=== PATIENT | male | born 1990 | race Caucasian/White ===

== ENCOUNTER 2024-06-09 11:39 | Emergency (ER) | payer OTHER ==
[~2024-06-09] VITALS: Ht 170.2 cm; Wt 59.0 kg
[2024-06-09 11:43] VITALS: TEMP 97.7
[2024-06-09] MEDS: proparacaine 0.5% ophthalmic drops 15ml RIGHTEYE ONE (13:10)
[2024-06-09] MEDS: gentamicin 0.3% ophthalmic drops 5ML RIGHTEYE ONE (13:25)
[2024-06-09 13:27] VITALS: BP 101/75; PULSE 66; RESP 16; O2SAT 99
== END 2024-06-09 13:40 | disposition home or self-care (01) ==
LOC: ER 11:40
DX: T15.11XA Foreign body in conjunctival sac, right eye, initial encounter (principal); W44.8XXA Other foreign body entering into or through a natural orifice, initial encounter; Y93.89 Activity, other specified; Y92.89 Other specified places as the place of occurrence of the external cause; Y99.8 Other external cause status
CPT/HCPCS: 65205; 99283; 99284

== ENCOUNTER 2025-06-01 05:01 | Emergency (ER) | payer OTHER ==
[~2025-06-01] VITALS: Ht 170.2 cm; Wt 56.8 kg
--- NOTE | 2025-06-01 05:30 | ELECTROCARDIOGRAPH REPORT ---
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
--- NOTE | 2025-06-01 06:16 | Physician Documentation ---
History of Present Illness General Chief Complaint: See Chief Complaint Stated Complaint: FLU LIKE SYMPTOMS Time Seen by MD: 06:05 Mode of Arrival: Ambulatory History of Present Illness Initial Comments 35-YEAR-OLD MALE PRESENTS TO THE EMERGENCY DEPARTMENT WITH MULTIPLE COMPLAINTS COMPLAINS OF WEIGHT LOSS CHILLS decreased energy decreased appetite over the last several months. Patient states he has been followed at the [facility] and they prescribed him omeprazole recently. Patient states he has difficulty eating and has mostly been drinking fluids but he has been losing weight. He denies any actual fevers he states that he has been dizzy and he occasionally has PVCs. The patient has no cardiac history patient has no known medical problems he is taking no medications he does smoke occasionally marijuana. Patient's symptoms are mild to moderate and persistent. Medication Reconciliation Allergies: Coded Allergies: No Known Allergies (Unverified , 06/09/24) Scheduled Atenolol (Atenolol), 1 TAB PO DAILY Scheduled PRN ONDANSETRON ODT 4mg tablet (Ondansetron Odt), 1 TABLET PO Q6H PRN for nausea/vomiting Past Medical History Past Medical History: No Pertinent History Past Surgical History: no surgical history Drug Use: none Lives In: Home Review of Systems All Other Systems at this time: Reviewed and Negative Physical Exam Physical Exam Vital Signs: Temperature: 98.0, Source: Oral, Heart Rate: 115, Respiratory Rate: 14, BP: 113/76, Pulse Oximetry: 99, Weight: 56.810 Physical Exam The note accurately reflects work and decisions made by me.Laina Tinoco MD 06/01/25 06:37VITALS: Reviewed and as above. GENERAL: Alert, no apparent distress. HEENT: Normocephalic, atraumatic, PERRL, EOMI, dry mucosa, no erythema RESPIRATORY: Lungs clear, normal breath sounds, no respiratory distress. CHEST: No accessory muscle use, no retractions CV: Regular rate, rhythm, no edema, no murmur, No: JVD GI: Soft, non-tender, bowels sounds present, no rebound, guarding, or rigidity BACK: No CVA tenderness, or swelling MUSCULOSKELETAL No deformities, no edema SKIN: Warm and dry, no rash NEURO: Oriented x4, No motor or sensory deficit PSYCH: Normal mood and affect, no agitation Progress Results/Orders Results/Orders Completed Orders - OHLFS,LAINA Acuna MD TSH (06/01/25 06:33) Vital Signs 06/01/25 06/01/25 06/01/25 06/01/25 05:03 05:37 06:49 06:54 Temp 98.0 98.3 Pulse 115 98 Resp 20 14 16 B/P (MAP) 113/76 114/86 (95) Pulse Ox 99 98 O2 Flow Rate 0 06/01/25 06/01/25 07:30 08:31 Pulse 87 102 99 93 Resp 16 B/P (MAP) 115/80 115/76 (89) 115/86 108/75 Pulse Ox 97 O2 Flow Rate 0 Laboratory Tests Test 06/01/25 07:14 White Blood Count 7.7 Red Blood Count 4.51 L Hemoglobin 13.4 L Hematocrit 38.0 L Mean Corpuscular Volume 84.3 Mean Corpuscular Hemoglobin 29.7 Mean Corpuscular Hemoglobin Concent 35.3 Red Cell Distribution Width 12.6 Platelet Count 225 Mean Platelet Volume 8.7 Neutrophils (%) (Auto) 80.6 H Lymphocytes (%) (Auto) 13.9 L Monocytes (%) (Auto) 4.8 Eosinophils (%) (Auto) 0.3 Basophils (%) (Auto) 0.4 Neutrophils # (Auto) 6.2 Lymphocytes # (Auto) 1.1 Monocytes # (Auto) 0.4 Eosinophils # (Auto) 0.0 Basophils # (Auto) 0.0 CBC Comment Sodium Level 133 L Potassium Level 4.3 Chloride Level 98 L Carbon Dioxide Level 26.4 Anion Gap 9 Blood Urea Nitrogen 22 H Creatinine 1.16 H Estimated GFR/1.73 m2 71 BUN/Creatinine Ratio 19.0 Glucose Level 106 H Calcium Level 9.1 Total Bilirubin 1.1 H Aspartate Amino Transf (AST/SGOT) 18 Alanine Aminotransferase (ALT/SGPT) 17 Alkaline Phosphatase 55 Total Protein 8.0 Albumin 4.8 Globulin 3.2 Albumin/Globulin Ratio 1.5 Thyroid Stimulating Hormone (TSH) 1.09 Chemistry Comments Medical Decision Making Findings The patient's 12 lead EKG was read as a normal sinus rhythm with a rate of 96 with normal axis interpretation normal EKG. The patient has had multiple vague symptoms over the last weeks to months the patient complains of weight loss fatigue decreased appetite. Patient was recently placed on omeprazole the latanya forrester has a benign exam his labs were unremarkable here in the emergency department the patient's TSH was checked and was normal patient has been advised to follow up as an outpatient. The patient's prior hospitalizations were reviewed. The patient's pulse oximetry was interpreted as normal and adequate. The patient was slightly clinically dehydrated he has significant anxiety he has agreed to take atenolol and see if that helps with the anxiety was offered Celexa he he wanted to try the atenolol. [facility] for significant worsening of his symptoms. Departure Disposition: HOME / SELF CARE / HOMELESS Impression: Primary Impression: Dehydration Additional Impression: Anxiety Discharge Instructions: Dehydration, Adult, [id number] Additional Instructions: Follow up with your healthcare providers soon as possible. Take atenolol 25 mg at night. Return for worsening of your symptoms. Continue to take your omeprazole. Referrals: NO PRIMARY CARE PROVIDER (PCP) Prescriptions ONDANSETRON ODT 4mg tablet (ONDANSETRON ODT) 4 Mg Tab.rapdis 1 TABLET PO Q6H PRN for nausea/vomiting, #21 TABLET Prov: LAINA TINOCO MD 06/01/25 Atenolol (Atenolol) 25 Mg Tablet 1 TAB PO DAILY for 30 Days, #30 TAB Prov: LAINA TINOCO MD 06/01/25 Signature Scribe Signature: no scribe Attestation: The note accurately reflects work and decisions made by me.Laina Tinoco MD 06/03/25 00:39 LAINA TINOCO MD Jun 01, 2025 06:16
[2025-06-01] MEDS ORDERED: ONDA-243 PO (06:35)
[2025-06-01] MEDS ORDERED: ATEN25TA PO (06:35)
[2025-06-01 06:49] VITALS: TEMP 98.3
[2025-06-01 07:28] LABS: MEAN PLATELET VOLUME 8.7 FL (7.4-10.4); RED CELL DISTRIBUTION WIDTH 12.6 % (11.5-14.5)
[2025-06-01 07:38] LABS: CREATININE 1.16 MG/DL (0.60-1.10); TOTAL CARBON DIOXIDE 26.4 MMOL/L (24-32); eCRCL 71 ML/MIN; eGFR 71 ML/MIN
[2025-06-01 08:31] VITALS: BP 115/76; PULSE 102; RESP 16; O2SAT 97
== END 2025-06-01 09:08 | disposition home or self-care (01) ==
LOC: ER 05:02
DX: E86.0 Dehydration (principal); F41.9 Anxiety disorder, unspecified
CPT/HCPCS: 36415; 80053; 84443; 85025; 93005; 99284

== ENCOUNTER 2025-06-23 18:07 | Emergency (ER) | payer OTHER ==
[~2025-06-23] VITALS: Ht 172.7 cm; Wt 57.7 kg
[~2025-06-23 18:07] MED LIST: ATEN25TA PO; ONDA-243 PO
[2025-06-23 18:13] VITALS: BP 139/87; PULSE 127; RESP 18; TEMP 98.4; O2SAT 99
--- NOTE | 2025-06-23 18:17 | ELECTROCARDIOGRAPH REPORT ---
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
[2025-06-23 18:29] LABS: MEAN PLATELET VOLUME 8.8 FL (7.4-10.4); RED CELL DISTRIBUTION WIDTH 12.9 % (11.5-14.5)
--- NOTE | 2025-06-23 18:38 | RADIOLOGY REPORT ---
CHEST RADIOGRAPH Indication: CP Technique: Single frontal view of the chest was obtained COMPARISON: None FINDINGS: Lines and Tubes: None Lungs: Clear Pleura: No effusion. No pneumothorax. Cardiomediastinal contours: Unremarkable Bones: Unremarkable IMPRESSION: No acute disease.
[2025-06-23 18:51] LABS: CREATININE 0.96 MG/DL (0.60-1.10); PRO BRAIN NATRIURETIC PEPTIDE < 30 PG/ML (0-125); TOTAL CARBON DIOXIDE 27.4 MMOL/L (24-32); eCRCL 87 ML/MIN; eGFR 89 ML/MIN
[2025-06-23] MEDS ORDERED: HYDR-3686 PO (19:19)
--- NOTE | 2025-06-23 19:19 | Physician Documentation ---
History of Present Illness ~ Chief Complaint: Palpitations Stated Complaint: CP Time Seen by MD: 19:13 HPI 35-year-old male with complaints of heart racing palpitations starting while watching a movie. Patient has no significant heart history this is the 3rd time in 2 months that he has been in for chest pain or racing heart rate. Patient does see his primary care at the [place] he is scheduled to have a 72 hour Holter monitor put on tomorrow for further evaluation and treatment. Patient is also being treated for gastric ulcers and gastritis. Patient denies any pain but has had costochondritis in the past. Patient states he was watching a movie and noticed his watch tell him that his heart rate was in the 150s and then in the 170s he was deep breathing did not feel anxious has stopped caffeine and eliminated nicotine at the previous visit but did start drinking caffeine again today. Patient had a little over half a energy drink today. Patient was given propranolol as needed for a racing heart rate but does not take it consistently. Medication Reconciliation Allergies: Coded Allergies: No Known Allergies (Unverified , 06/23/25) Scheduled Atenolol (Atenolol), 1 TAB PO DAILY Scheduled PRN ONDANSETRON ODT 4mg tablet (Ondansetron Odt), 1 TABLET PO Q6H PRN for nausea/vomiting Past Medical History Past Medical History: No Pertinent History Past Surgical History: no surgical history Drug Use: none Lives In: Home Review of Systems All Other Systems at this time: Reviewed and Negative Cardiovascular: Reports: see HPI Physical Exam Vital Signs: RN Vital Signs have been reviewed: Yes, Temperature: 98.4, Source: Temporal, Heart Rate: 127, Respiratory Rate: 18, BP: 139/87, Pulse Oximetry: 99, Weight: 57.730 Oxygen Flow Rate: 0 General Appearance: alert, WD/WN, no apparent distress Neck: normal inspection, full range of motion, supple Respiratory: lungs clear, normal breath sounds, no respiratory distress Chest: no accessory muscle use; No: retractions Cardiovascular: normal peripheral pulses, no edema, no JVD Neurologic: oriented x4, 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 nml as tested Psych: normal mood/affect, anxiety Skin: normal color, warm/dry; No: rash Progress Results/Orders Results/Orders Vital Signs 06/23/25 18:13 Temp 98.4 Pulse 127 Resp 18 B/P (MAP) 139/87 Pulse Ox 99 O2 Flow Rate 0 Laboratory Tests Test 06/23/25 18:13 White Blood Count 8.9 Red Blood Count 4.52 L Hemoglobin 13.3 L Hematocrit 39.2 L Mean Corpuscular Volume 86.6 Mean Corpuscular Hemoglobin 29.4 Mean Corpuscular Hemoglobin Concent 34.0 Red Cell Distribution Width 12.9 Platelet Count 269 Mean Platelet Volume 8.8 Neutrophils (%) (Auto) 52.9 Lymphocytes (%) (Auto) 36.8 Monocytes (%) (Auto) 7.6 Eosinophils (%) (Auto) 1.9 Basophils (%) (Auto) 0.8 Neutrophils # (Auto) 4.7 Lymphocytes # (Auto) 3.3 Monocytes # (Auto) 0.7 Eosinophils # (Auto) 0.2 Basophils # (Auto) 0.1 CBC Comment Sodium Level 141 Potassium Level 3.6 Chloride Level 103 Carbon Dioxide Level 27.4 Anion Gap 11 Blood Urea Nitrogen 17 Creatinine 0.96 Estimated GFR/1.73 m2 89 BUN/Creatinine Ratio 17.7 Glucose Level 100 Calcium Level 9.3 Troponin I High Sensitivity < 4 L Troponin I High Sens Percent Delta Troponin I Hi Sens Absolute Change Pro-B-Type Natriuretic Peptide < 30 Albumin 4.4 Chemistry Comments EKG/XRAY/CT/US/VASC/MRI EKG : Additional Comment Sinus tachycardia at 119 right axis deviation no acute ST-T abnormalities Chest X-Ray : Additional Comments CHEST RADIOGRAPH Indication: CP Technique: Single frontal view of the chest was obtained COMPARISON: None FINDINGS: Lines and Tubes: None Lungs: Clear Pleura: No effusion. No pneumothorax. Cardiomediastinal contours: Unremarkable Bones: Unremarkable IMPRESSION: No acute disease. Heart Score: Heart Score Response (Comments) Value History Slightly Suspicious 0 EKG Normal 0 Age <45 0 Risk Factors 1 or 2 risk factors 1 Troponin Normal limit 0 Total 1 Medical Decision Making Findings Score 1 patient has traumatic brain injury PTSD from his service in the . Patient has a Holter monitor scheduled to be placed tomorrow and has primary care follow up he will have a referral to Cardiology he has not seen yet. We will prescribe hydroxyzine for anxiety and anxiety symptoms. Patient will follow up outpatient. Patient will limit caffeine and continue with nicotine cessation Departure Time of Disposition: 19:17 Disposition: 01 HOME / SELF CARE / HOMELESS Impression: Primary Impression: Palpitations Additional Impression: Anxiety Condition: Stable Discharge Instructions: Palpitations, [id number] Referrals: NO PRIMARY CARE PROVIDER (PCP) Prescriptions Hydroxyzine Hcl* (Atarax*) 25 Mg Tablet 1 TAB PO Q8H for anxiety for 10 Days, #30 TAB Prov: STEPHANIE WATKINS NP 06/23/25 Education Educated: Patient, Family Educated regarding: diagnosis, treatment, need for follow up Signature Scribe Signature: No scribe Attestation: The note accurately reflects work and decisions made by me.Stephanie Watkins - BENJIE 06/23/25 19:19 STEPHANIE WATKINS NP Jun 23, 2025 19:19
== END 2025-06-23 19:35 | disposition home or self-care (01) ==
LOC: ER 18:07
DX: R00.2 Palpitations (principal); F41.9 Anxiety disorder, unspecified; Z79.899 Other long term (current) drug therapy
CPT/HCPCS: 36415; 71045; 80048; 83880; 84484; 85025; 93005; 99285; Q0177